=== PATIENT | female | born 1965 | race Caucasian/White ===

== ENCOUNTER → 2016-11-29 | Outpatient (CLI) | payer BC ==
[~2016-11-29] MED LIST: ALL180 PO; FRRS300 PO; MULT-506 PO; PRED20TA PO; [UNRECOGNIZED DRUG - OTHER]
--- NOTE | 2016-11-29 13:07 | MAMMOGRAPHY REPORT ---
BILATERAL DIGITAL SCREENING MAMMOGRAM TOMOSYNTHESIS WITH CAD: 11/29/2016 CLINICAL HISTORY: Routine screening. Patient has no complaints. TECHNIQUE: Breast tomosynthesis in addition to standard 2D mammography was performed. Current study was also evaluated with a Computer Aided Detection (CAD) system. COMPARISON: Comparison is made to exams dated: 11/27/2015 mammogram, 11/25/2014 mammogram, 11/20/2013 ma mmogram, 11/14/2012 mammogram, 11/14/2011 mammogram, and 11/10/2010 mammogram - [facility] er. BREAST COMPOSITION: The tissue of both breasts is heterogeneously dense, which may obscure small mas ses. FINDINGS: The parenchymal pattern is unchanged. No developing mass, architectural distortion or clus ter of suspicious microcalcifications is seen in either breast. IMPRESSION: ACR BI-RADS CATEGORY 2: BENIGN There is no mammographic evidence of malignancy. A 1 year screening mammogram is recommended. The pa tient will receive written notification of the results. Approximately 10% of breast cancers are not detected with mammography. A negative mammographic report should not delay biopsy if a clinically suggestive mass is present. Ingrid Tejada M.D. ay/:11/29/2016 08:50:56 Community Program Assistant: Rere VERMA(Alexa)(Blake), [facility] letter sent: Normal 1/2 BI-RADS Code: ACR BI-RADS Category 2: Benign
== END | disposition home or self-care (01) ==
LOC: C.MAMM 07:41
PROVIDERS: ATTEND Obstetrics & Gynecology
DX: Z12.31 Encounter for screening mammogram for malignant neoplasm of breast (principal)

== ENCOUNTER 2017-07-25 08:39 | Emergency (ER) | payer BC, OTHER ==
[~2017-07-25] VITALS: Ht 165.1 cm; Wt 95.5 kg
[2017-07-25 08:40] VITALS: Ht 165.1 cm; Wt 95.5 kg
[2017-07-25 08:58] VITALS: O2SAT 99
[2017-07-25 09:27] LABS: BASO % 0.2 %; BASO ABS # 0.01 K/uL (0-0.2); EOS % 0.2 %; EOS ABS # 0.01 K/uL (0-0.5); HEMATOCRIT 37.3 % (37-47); HEMOGLOBIN 12.9 g/dL (12.0-16.0); IG# 0.02 K/uL (0.00-0.02); LYMPH % 34.6 %; LYMPH ABS # 1.95 K/uL (1.2-3.4); MEAN CELL VOLUME 90.8 fL (80-100); MEAN CORPUSCULAR HEMOGLOBIN 31.4 pg (25-34); MEAN CORPUSCULAR HGB CONC 34.6 g/dl (32-36); MEAN PLATELET VOLUME 11.7 fL (7.4-10.4); MONO % 4.3 %; MONO ABS # 0.24 K/uL (0.11-0.59); NEUT % 60.3 %; NEUT ABS # 3.41 K/uL (1.4-6.5); PLATELET COUNT 180 K/uL (130-400); WHITE BLOOD COUNT 5.64 K/uL (4.8-10.8)
[2017-07-25] MEDS ORDERED: BCPILLS PO (09:31)
[2017-07-25] MEDS ORDERED: LORA-741 PO (09:31)
[2017-07-25 09:51] LABS: GLUCOSE 90 mg/dl (70-99)
[2017-07-25 09:52] LABS: BLOOD UREA NITROGEN 11 mg/dl (7-18); CALCIUM 8.8 mg/dl (8.5-10.1); CARBON DIOXIDE 27 mmol/L (21-32); POTASSIUM 3.8 mmol/L (3.5-5.1); SODIUM 138 mmol/L (136-145); TOTAL PROTEIN 7.3 gm/dl (6.4-8.2)
[2017-07-25 09:53] LABS: ALBUMIN 3.8 gm/dl (3.4-5.0); ALKALINE PHOSPHATASE 60 U/L (45-117); ALT/SGPT 22 U/L (12-78); AST/SGOT 11 U/L (15-37)
[2017-07-25 09:54] LABS: LIPASE 116 U/L (73-393)
--- NOTE | 2017-07-25 10:23 | DIAGNOSTIC IMAGING REPORT ---
CHEST 2 VIEWS ROUTINE HISTORY: 51 years-old Female CHEST PAIN acute atypical chest pain COMPARISON: Chest CT 09/23/2010 TECHNIQUE: PA and lateral views of the chest FINDINGS: Cardiomediastinal and hilar silhouettes are within normal limits. There is no pneumothorax, pleural effusion, focal airspace consolidation or overt pulmonary edema. The bones of the chest appear grossly intact. There is grade 1 listhesis noted at an upper lumbar level, likely L1 on L2. Degenerative changes noted within the shoulders and spine. IMPRESSION: No acute process. The above report was generated using voice recognition software. It may contain grammatical, syntax or spelling errors. Electronically signed by: Sawyer Cordon M.D. 07/25/2017 10:21 AM Dictated Date/Time: 07/25/2017 10:19 AM
--- NOTE | 2017-07-25 11:08 | EMERGENCY ROOM VISIT NOTE ---
ED Visit Note First contact with patient: 08:46 CHIEF COMPLAINT: Chest pain HISTORY OF PRESENTING ILLNESS: This is a 51-year-old female who presents the emergency department with complaint of midsternal chest pain. She states that the pain has been going on for approximately 1 month, has been intermittent, however it has gotten worse and has been constant for the past 2 days. She describes the pain as a ball of pressure in the middle of her chest, it does not radiate, it is not worsened by exertion, lying flat, or taking a deep breath , currently rates as 4/10. She has some associated intermittent tingling in her lips and face. She states that she has a history of anxiety, she thought this might be the cause of her chest pain, so she took a leftover Ativan a few hours ago, but states this has not seemed help her symptoms so far. She has not tried any other medications for the pain. She denies any symptoms of shortness of breath, wheezing, cough, hemoptysis, dizziness or syncope, nausea, vomiting, abdominal pain, back pain, diaphoresis, diarrhea, urinary symptoms, or rash. She denies any headaches, neck pain, vision changes , fevers or chills. REVIEW OF SYSTEMS: A complete 10 point review of systems was reviewed with the patient with pertinent positives and negatives as per history of present illness. All else were negative. PAST MEDICAL HISTORY: Anxiety SOCIAL HISTORY: Lives at home. She is not a smoker, denies alcohol or recreational drugs. ALLERGIES: Reviewed in chart. PHYSICAL EXAM: CONSTITUTIONAL: Pleasant and cooperative. No acute distress, but does seem somewhat anxious. Well hydrated and well nourished. HEENT: Normocephalic, atraumatic. Pupils equal, round and reactive to light, EOMI. TMs normal. Pharynx normal. NECK: Supple, full active range of motion without discomfort. RESPIRATORY: Clear to auscultation bilaterally with no wheezing, crackles, rhonchi or stridor. Equal expansion bilaterally. CARDIOVASCULAR: Regular rate and rhythm with no murmurs, rubs or gallops. Normal peripheral perfusion. No edema. GASTROINTESTINAL: Soft, nontender, nondistended. No palpable masses or HSM. Bowel sounds present in all quadrants. MUSCULOSKELETAL: Full range of motion of all joints without discomfort. INTEGUMENTARY: No rash or other significant dermatologic conditions noted. NEUROLOGIC: Alert and oriented X 4 with normal affect. No focal neurologic deficits noted. Normal strength and sensation all 4 extremities. Normal speech. Normal gait observed. ED COURSE AND MEDICAL DECISION MAKING: CC: Patient presenting with complaint of chest pain DIFFERENTIAL DIAGNOSIS: Includes, but not limited to acute coronary syndrome, anxiety, musculoskeletal pain, GERD, costochondritis, pericarditis, pneumonia, PE, among others. INTERPRETATION OF LABS: No leukocytosis, no anemia, no significant electrolyte abnormalities, normal renal function, normal liver enzymes and lipase. Troponin negative. IMAGIN view chest x-ray reviewed by myself and radiologist and shows no acute abnormalities by my interpretation. EKG: Shows normal sinus rhythm with a rate of 85 bpm, nonspecific ST abnormality in III and aVF by my interpretation. No previous EKGs available for comparison. MEDICATION RECONCILIATION: I attest that I have personally reviewed the patient 's current medication list. INITIAL VITAL SIGNS REVIEW: I reviewed the patient's initial vital signs and interpret them as follows: T: Afebrile; BP: Hypertensive; HR: Mildly tachycardic; RR: Within normal limits; Pulse Ox: Within normal limits on room air. Blood pressure screening: The patient was found to have an elevated blood pressure, which was felt to be situational. SUMMARY: Patient was evaluated at bedside, history and physical exam performed. Patient is alert and oriented, no acute distress, resting calmly in stretcher. Patient states that she has had constant dull aching pressure in her chest for the past 2 days, not exertional, pleuritic, reproducible. Heart and lung exam unremarkable. She does not have any peripheral edema. No carotid bruits or JVD noted on exam. EKG reviewed at bedside, no acute ischemic changes noted. Orders were placed at bedside for labs, chest x-ray to evaluate for cardiopulmonary disease. Patient was offered something for pain, she declined stating she just wants to know if anything is wrong with her heart. Patient discussed with Dr. Chambers, who agrees with my assessment and plan. Labs and imaging reviewed as above, unremarkable and troponin is negative after more than 2 days of constant chest pain, I feel ACS is unlikely. Patient is low risk for PE by Wells criteria, has not had any associated shortness of breath, I do also feel PE is unlikely. Her symptoms seem much more consistent with anxiety, given her history of similar presentation in the past and associated facial tingling. She does admit to feeling stressed. Initial vital signs of hypertension and tachycardia are improved as well without any intervention. Patient reassessed multiple times throughout ED stay, patient states her pain is somewhat improved and she feels less anxious, but is still describing as a 3- 4/10. She was again offered something for pain, she states "I am fine, I will just take some Tylenol when I get home." Patient was updated on all results and plan for discharge, she was comfortable with this plan. She was encouraged to follow closely with her primary care provider. Patient was also given strict return precautions should her symptoms worsen, she verbalized understanding. Patient was discharged home in stable condition and ambulatory. Current/Historical Medications Scheduled Control Pills ( Control Pills), 1 TAB PO DAILY Scheduled PRN Lorazepam (Ativan), 0.5 MG PO UD PRN for Anxiety Allergies Coded Allergies: Amoxicillin (Unverified Allergy, Unknown, HIVES, 07/25/17) Penicillins (Unverified Allergy, Unknown, SWELLING, 07/25/17) Vital Signs Date Time Temp Pulse Resp B/P (MAP) Pulse Ox O2 Delivery O2 Flow Rate FiO2 07/25/17 11:15 78 20 108/59 98 07/25/17 09:58 70 18 130/82 99 Room Air 07/25/17 09:30 70 07/25/17 08:58 99 Room Air 07/25/17 08:58 99 Room Air 07/25/17 08:40 37.3 102 18 168/90 99 Room Air Laboratory Results 07/25/17 08:05 Red Blood Count 4.11, Mean Corpuscular Volume 90.8, Mean Corpuscular Hemoglobin 31.4, Mean Corpuscular Hemoglobin Concent 34.6, Mean Platelet Volume 11.7, Neutrophils (%) (Auto) 60.3, Lymphocytes (%) (Auto) 34.6, Monocytes (%) (Auto) 4.3, Eosinophils (%) (Auto) 0.2, Basophils (%) (Auto) 0.2, Neutrophils # (Auto) 3.41, Lymphocytes # (Auto) 1.95, Monocytes # (Auto) 0.24, Eosinophils # (Auto) 0.01, Basophils # (Auto) 0.01 07/25/17 08:05 Test 07/25/17 08:05 White Blood Count 5.64 K/uL (4.8-10.8) Red Blood Count 4.11 M/uL (4.2-5.4) Hemoglobin 12.9 g/dL (12.0-16.0) Hematocrit 37.3 % (37-47) Mean Corpuscular Volume 90.8 fL (80-100) Mean Corpuscular Hemoglobin 31.4 pg (25-34) Mean Corpuscular Hemoglobin Concent 34.6 g/dl (32-36) Platelet Count 180 K/uL (130-400) Mean Platelet Volume 11.7 fL (7.4-10.4) Neutrophils (%) (Auto) 60.3 % Lymphocytes (%) (Auto) 34.6 % Monocytes (%) (Auto) 4.3 % Eosinophils (%) (Auto) 0.2 % Basophils (%) (Auto) 0.2 % Neutrophils # (Auto) 3.41 K/uL (1.4-6.5) Lymphocytes # (Auto) 1.95 K/uL (1.2-3.4) Monocytes # (Auto) 0.24 K/uL (0.11-0.59) Eosinophils # (Auto) 0.01 K/uL (0-0.5) Basophils # (Auto) 0.01 K/uL (0-0.2) RDW Standard Deviation 43.0 fL (36.4-46.3) RDW Coefficient of Variation 13.0 % (11.5-14.5) Immature Granulocyte % (Auto) 0.4 % Immature Granulocyte # (Auto) 0.02 K/uL (0.00-0.02) Anion Gap 7.0 mmol/L (3-11) Est Creatinine Clear Calc Drug Dose 84.5 ml/min Estimated GFR () 85.8 Estimated GFR (Non- 74.0 BUN/Creatinine Ratio 12.2 (10-20) Calcium Level 8.8 mg/dl (8.5-10.1) Total Bilirubin 0.3 mg/dl (0.2-1) Direct Bilirubin < 0.1 mg/dl (0-0.2) Aspartate Amino Transf (AST/SGOT) 11 U/L (15-37) Alanine Aminotransferase (ALT/SGPT) 22 U/L (12-78) Alkaline Phosphatase 60 U/L (45-117) Troponin I < 0.015 ng/ml (0-0.045) Total Protein 7.3 gm/dl (6.4-8.2) Albumin 3.8 gm/dl (3.4-5.0) Lipase 116 U/L (73-393) Departure Information Impression Primary Impression: Atypical chest pain Dispostion Home / Self-Care Condition GOOD Referrals Phuong Patrick M.D. (PCP) Patient Instructions ED Chest Pain Atypical Unkn Cause, [facility] Additional Instructions You have been treated in the Emergency Department your chest pain. Laboratory results and imaging studies have ruled out any emergent causes for your symptoms which would warrant admission or surgery. For pain control, you can use the following [id number] medicines (if >12 yo): - Regular strength (325mg/tab) Tylenol (acetaminophen) 2 tabs every 4-6 hours as needed. Do not exceed 10 tablets in a 24 hour period. Avoid taking more than 3000 mg of Tylenol per day. This includes any other sources of acetaminophen you may take on a regular basis. - Regular strength (200 mg/tab) Advil (ibuprofen) 3 tabs every 6-8 hours as needed. Do not exceed a dose of 2400 mg per day. Drink plenty of fluids to stay well hydrated. Please follow-up with your Primary Care Provider in the next few days for reassessment. You should discuss a referral to see a machine bender with your PCP if your chest pain continues. Return to the emergency department for severe worsening chest pain, if you develop shortness of breath or difficulty breathing, coughing or vomiting up blood, persistent nausea or vomiting, fevers > 101.5, severe dizziness or passing out, or any other concerns. Work Instructions Return To Work: 1 day
[2017-07-25 11:15] VITALS: BP 108/59; PULSE 78; O2SAT 98
== END 2017-07-25 11:26 | disposition home or self-care (01) ==
LOC: C.EDB 08:40 → C.EDA 11:26
DX: R07.89 Other chest pain (principal); Z79.3 Long term (current) use of hormonal contraceptives; Z88.1 Allergy status to other antibiotic agents; Z88.0 Allergy status to penicillin

== ENCOUNTER → 2017-08-31 | Outpatient (CLI) | payer OTHER ==
[~2017-08-31] MED LIST changes: -ALL180 PO; +BCPILLS PO; -FRRS300 PO; +LORA-741 PO; -MULT-506 PO; -PRED20TA PO; -[UNRECOGNIZED DRUG - OTHER]
== END | disposition home or self-care (01) ==
LOC: C.PAPS 11:06
PROVIDERS: ATTEND Obstetrics & Gynecology
DX: Z12.4 Encounter for screening for malignant neoplasm of cervix (principal)

== ENCOUNTER → 2017-12-01 | Outpatient (CLI) | payer OTHER ==
[2017-12-01 09:28] LABS: BASO % 0.5 %; BASO ABS # 0.02 K/uL (0-0.2); EOS % 0.5 %; EOS ABS # 0.02 K/uL (0-0.5); HEMATOCRIT 37.4 % (37-47); HEMOGLOBIN 12.2 g/dL (12.0-16.0); IG# 0.01 K/uL (0.00-0.02); LYMPH % 44.5 %; LYMPH ABS # 1.92 K/uL (1.2-3.4); MEAN CELL VOLUME 91.9 fL (80-100); MEAN CORPUSCULAR HGB CONC 32.6 g/dl (32-36); MEAN PLATELET VOLUME 12.2 fL (7.4-10.4); MONO % 6.7 %; MONO ABS # 0.29 K/uL (0.11-0.59); NEUT % 47.6 %; NEUT ABS # 2.05 K/uL (1.4-6.5); PLATELET COUNT 180 K/uL (130-400); RED CELL DISTRIBUTION WIDTH CV 13.1 % (11.5-14.5); RED CELL DISTRIBUTION WIDTH SD 43.7 fL (36.4-46.3); WHITE BLOOD COUNT 4.31 K/uL (4.8-10.8)
--- NOTE | 2017-12-13 13:41 | CODING QUERY MEDICAL NECESSITY ---
CQTREATMENT RENDERED WITHOUT A DIAGNOSIS To promote full compliance with coding requirements relating to patient care, physician participation is requested in all cases of illusionist uncertainty. Please assist us with providing a diagnosis/symptom for the test(s) below: A diagnosis/symptom was not documented on your Order. A valid diagnosis/symptom is required to bill all insurances. Please remember that we are unable to code a diagnosis of rule out, probable, possible, questionable, or suspected. Tests that require a diagnosis: DOS 12/01/17 CBC TEST FOLLICLE STIMULATING THYROID TEST Provider Signature: Date: Thank you [facility] Information Management Once completed, please kindly fax back to [phone] For questions please call [phone]
== END | disposition home or self-care (01) ==
LOC: C.LAB1850 07:34
PROVIDERS: ATTEND Obstetrics & Gynecology
DX: N93.8 Other specified abnormal uterine and vaginal bleeding (principal)

== ENCOUNTER → 2017-12-01 | Outpatient (CLI) | payer OTHER ==
--- NOTE | 2017-12-04 07:45 | MAMMOGRAPHY REPORT ---
BILATERAL DIGITAL SCREENING MAMMOGRAM TOMOSYNTHESIS WITH CAD: 12/01/2017 CLINICAL HISTORY: Routine screening. The patient reported to the technologist a new palpable left graham ast lump. TECHNIQUE: The study was acquired using full field digital technology and interpreted from soft copy. Breast tomosynthesis in addition to standard 2D mammography was performed. Current study was also ev aluated with a Computer Aided Detection (CAD) system. COMPARISON: Comparison is made to exams dated: 11/29/2016 mammogram, 11/27/2015 mammogram, 11/25/2014 m ammogram, 11/14/2012 mammogram, 11/14/2011 mammogram, and 11/16/2010 mammogram - [facility]. BREAST COMPOSITION: There are scattered areas of fibroglandular density in both breasts. FINDINGS: A triangle marker solo the site of the palpable lump in the left upper inner quadrant. There are no suspicious masses or other suspicious abnormalities seen at the site of the triangle marker. Asymme tries seen within the left medial breast medial to the triangle marker are stable compared to multipl e prior exams and have the appearance of normal fibroglandular tissue on the tomosynthesis images. O ther bilateral asymmetries are stable. There are no suspicious masses, calcifications, or areas of a rchitectural distortion noted in either breast. IMPRESSION: ACR BI-RADS CATEGORY 0: INCOMPLETE EVALUATION: NEED ADDITIONAL IMAGING EVALUATION No mammographic evidence of malignancy in either breast. However, the patient reported a new palpabl e lump in the left breast. As the workup for a new palpable lump includes mammography and ultrasound , recommend additional imaging evaluation with targeted ultrasound. The patient will be called to schedule an appointment. Some breast cancers are not detected with mammography. A negative mammographic report should not kerry y biopsy if a clinically suggestive mass is present. Judith Rowan M.D. /:12/01/2017 15:56:56 Category Development Analyst: Sarai Miranda, [facility] letter sent: Addl Imaging 0 BI-RADS Code: ACR BI-RADS Category 0: Incomplete Evaluation: Need Additional Imaging Evaluation
== END | disposition home or self-care (01) ==
LOC: C.MAMM 07:57
PROVIDERS: ATTEND Obstetrics & Gynecology
DX: Z12.31 Encounter for screening mammogram for malignant neoplasm of breast (principal); N63.22 Unspecified lump in the left breast, upper inner quadrant

== ENCOUNTER → 2017-12-07 | Outpatient (CLI) | payer OTHER ==
--- NOTE | 2017-12-07 16:01 | MAMMOGRAPHY REPORT ---
ULTRASOUND OF LEFT BREAST: 12/07/2017 CLINICAL HISTORY: The patient reports that she has had a left breast lump for some time, although rec ently it has felt firmer and more defined. She recently discontinued her control pills and is c urrently going through menopause. Her recent screening mammogram showed no changes. COMPARISON: Comparison is made to exams dated: 12/01/2017 mammogram, 11/29/2016 mammogram, 11/27/2015 m ammogram, 11/25/2014 mammogram, 11/20/2013 mammogram, and 11/14/2012 mammogram - [facility]. Findings: Real-time, high-resolution targeted ultrasound was performed of the area of the palpable giovanni mp pointed out by the patient, in the left breast at approximately 11:00, 8 cm from the nipple (with the patient in the supine position with her arm raised above her head). Sonographically normal tissu e is seen in this region, without evidence of a mass or other suspicious sonographic abnormality. IMPRESSION: ACR BI-RADS CATEGORY 2: BENIGN No suspicious sonographic abnormality at the site of the palpable left 11:00 breast lump pointed out by the patient. There is no sonographic evidence of malignancy. Recommend clinical follow-up for th e palpable left breast lump; any decision to biopsy should be based on clinical assessment. Also rec ommend routine bilateral screening mammograms in one year. The patient was verbally notified of the results. Judith Rowan M.D. /:12/07/2017 12:05:14 Joinery Factory Worker: RT Lupe(R)(M), [facility] letter sent: Normal 1/2 BI-RADS Code: ACR BI-RADS Category 2: Benign
== END | disposition home or self-care (01) ==
LOC: C.MAMM 10:14
PROVIDERS: ATTEND Obstetrics & Gynecology
DX: N63.22 Unspecified lump in the left breast, upper inner quadrant (principal)